=== PATIENT | female | born 1970 | race Caucasian/White ===

== ENCOUNTER 2016-06-19 18:56 | Inpatient (IN) | payer MEDICAID ==
[~2016-06-19] VITALS: Ht 172.7 cm; Wt 132.5 kg
[2016-06-19] VITALS (10 sets, daily range): BP systolic 84–129; RESP 13–20; TEMP 98–99.8; Ht 172.7 cm; Wt 132.5 kg
[~2016-06-19 18:56] MED LIST: GLYCOPYRROLATE 0.2 MG/ML VIAL IV ONE; LIDOCAINE 2% JELLY 30 ML TOPICAL ONE; LIDOCAINE 2% SYR 5 ML IV ONE; METOCLOPRAMIDE 10 MG/2 ML VIAL IV PUSH ONE; MIDAZOLAM 2 MG/2 ML INJ IV ONE; PROPOFOL 50ML PER ML IV ONE
[2016-06-19] MEDS ORDERED: KETOROLAC 30 MG/ML VIAL ONE (19:27)
[2016-06-19] MEDS ORDERED: MORPHINE 4 MG/ML SYR ONE (19:28)
[2016-06-19] MEDS ORDERED: SODIUM CHLORIDE 0.9% 1,000 ML ONE ×2 (19:28→20:47)
[2016-06-19] MEDS ORDERED: ONDANSETRON 4 MG VIAL ONE (19:28)
[2016-06-19] MEDS ORDERED: ACETAMINOPHEN 325 MG TAB ONE (19:33)
[2016-06-19] MEDS ORDERED: DILAUDID 1 MG/ML AMP ONE ×2 (19:33→21:47)
[2016-06-19] MEDS ORDERED: SODIUM CHLORIDE 0.9% 100 ML IV ONE (19:59)
[2016-06-19] MEDS ORDERED: CEFTRIAXONE 1 GM VIAL ONE (19:59)
[2016-06-19] MEDS ORDERED: CEFTRIAXONE 1 GM in SODIUM CHLORIDE 0.9% 50 ML IV ONE (20:40)
[2016-06-19] MEDS ORDERED: ONDANSETRON 4 MG VIAL IV PUSH PRN (21:15)
[2016-06-19] MEDS ORDERED: DILAUDID 1 MG/ML AMP IV PRN (21:30)
[2016-06-19] MEDS ORDERED: MEPERIDINE 25 MG/ML IV PRN (21:30)
[2016-06-19] MEDS ORDERED: MORPHINE 2 MG/ML SYR IV PRN (21:30)
[2016-06-19] MEDS ORDERED: OXYCODONE 5 MG TAB PO PRN (21:30)
[2016-06-19] MEDS ORDERED: MORPHINE 4 MG/ML SYR IV PRN (21:30)
[2016-06-19] MEDS ORDERED: ONDANSETRON 4 MG VIAL IV PRN (21:30)
[2016-06-19] MEDS ORDERED: LACT RINGERS 1,000 ML IV SCH (21:35)
[2016-06-19] MEDS ORDERED: SODIUM CHLORIDE 0.9% 1,000 ML IV SCH (21:35)
[2016-06-20] VITALS (10 sets, daily range): BP systolic 106–119; RESP 15–20; TEMP 98.3–101.7
[2016-06-20] MEDS ORDERED: SODIUM CHLORIDE 0.9% 1,000 ML IV ONE (00:10)
[2016-06-20] MEDS: lamoTRIgine 25 MG TAB PO SCH ×3 (00:55→21:23)
[2016-06-20] MEDS: lamoTRIgine 100 MG TAB PO SCH ×3 (00:55→21:22)
[2016-06-20] MEDS: OXCARBAZEPINE 300 MG TAB PO SCH ×3 (00:56→21:22)
[2016-06-20] MEDS: MORPHINE 2 MG/ML SYR IV PRN ×2 (03:06→09:21)
[2016-06-20] MEDS: ACETAMINOPHEN 325 MG TAB PO PRN (06:43)
[2016-06-20] MEDS ORDERED: SODIUM CHLORIDE 0.9% 1,000 ML IV SCH (07:00)
[2016-06-20] MEDS: CEFTRIAXONE 2 GM in SODIUM CHLORIDE 0.9% 50 ML IV SCH (08:10)
[2016-06-20] MEDS: DOCUSATE SOD 100 MG CAP PO SCH ×2 (08:10→21:23)
[2016-06-20] MEDS: clonazePAM 0.5 MG TAB PO SCH ×2 (08:13→21:23)
[2016-06-20] MEDS: OXYCODONE 5 MG TAB PO PRN ×2 (14:35→21:24)
[2016-06-20] MEDS ORDERED: MISSING DOSE XX ONE (16:35)
[2016-06-20] MEDS: Ibuprofen 600 MG TAB PO PRN (16:58)
[2016-06-20] MEDS ORDERED: D5-1/2-NS W/KCL 20MEQ/L 1,000 ML IV SCH (17:00)
[2016-06-21 00:23] VITALS: BP_SYST 112; RESP 18; TEMP 98.5
[2016-06-21] MEDS: Ibuprofen 600 MG TAB PO PRN (01:38)
[2016-06-21 03:44] VITALS: BP_SYST 124; RESP 18; TEMP 98.9
[2016-06-21] MEDS ORDERED: KCL CR 20 MEQ TAB PO ONE (07:00)
[2016-06-21] MEDS ORDERED: D5-1/2-NS W/KCL 20MEQ/L 1,000 ML IV SCH (07:00)
[2016-06-21 07:30] VITALS: BP_SYST 122; RESP 16; TEMP 98.1
[2016-06-21] MEDS: CEFTRIAXONE 2 GM in SODIUM CHLORIDE 0.9% 50 ML IV SCH (08:10)
[2016-06-21] MEDS: OXCARBAZEPINE 300 MG TAB PO SCH ×2 (08:11→20:28)
[2016-06-21] MEDS: lamoTRIgine 100 MG TAB PO SCH ×2 (08:11→20:31)
[2016-06-21] MEDS: DOCUSATE SOD 100 MG CAP PO SCH ×2 (08:11→20:31)
[2016-06-21] MEDS: clonazePAM 0.5 MG TAB PO SCH ×2 (08:11→20:31)
[2016-06-21] MEDS: lamoTRIgine 25 MG TAB PO SCH ×2 (08:11→20:30)
[2016-06-21 11:09] VITALS: BP_SYST 129; RESP 16; TEMP 97.9
[2016-06-21] MEDS: OXYCODONE 5 MG TAB PO PRN ×3 (12:38→22:03)
[2016-06-21 15:29] VITALS: BP_SYST 140; RESP 15; TEMP 100.4
[2016-06-21] MEDS: ACETAMINOPHEN 325 MG TAB PO PRN (16:32)
[2016-06-21 20:13] VITALS: BP_SYST 122; RESP 16; TEMP 99.1
[2016-06-21] MEDS: TRIMETH/SULFAMETH 160/800 TAB PO SCH (20:31)
[2016-06-22 00:07] VITALS: BP_SYST 111; RESP 20; TEMP 98.6
[2016-06-22] MEDS: Ibuprofen 600 MG TAB PO PRN (01:37)
[2016-06-22 05:23] VITALS: BP_SYST 106; RESP 20; TEMP 97.9
[2016-06-22] MEDS: OXYCODONE 5 MG TAB PO PRN (05:29)
[2016-06-22 07:46] VITALS: BP_SYST 108; RESP 16; TEMP 98.1
[2016-06-22 08:20] VITALS: BP_SYST 108; RESP 16; TEMP 98.1
[2016-06-22] MEDS: lamoTRIgine 25 MG TAB PO SCH (08:36)
[2016-06-22] MEDS: lamoTRIgine 100 MG TAB PO SCH (08:36)
[2016-06-22] MEDS: DOCUSATE SOD 100 MG CAP PO SCH (08:36)
[2016-06-22] MEDS: clonazePAM 0.5 MG TAB PO SCH (08:37)
[2016-06-22] MEDS: OXCARBAZEPINE 300 MG TAB PO SCH (08:37)
[2016-06-22] MEDS: TRIMETH/SULFAMETH 160/800 TAB PO SCH (08:37)
== END 2016-06-22 13:58 | disposition home or self-care (01) | DRG 872 ==
LOC: ER 18:56 → EMR 21:15 → 5THW 22:24 → OBSVTOIN 06-21 15:57 → ENPENDDIS 06-21 15:57
PROVIDERS: ADMIT Urology; ATTEND Urology
PROC: 0T778DZ Dilation of Left Ureter with Intraluminal Device, Via Natural or Artificial Opening Endoscopic (ICD-10-PCS; principal; 2016-06-19 21:12)
CPT/HCPCS: 36415; 74000; 74176; 76000; 80048; 80053; 81001; 83605; 83690; 84132; 85025; 87040; 87088; 87804; 87880; 96361; 96365; 96375

== ENCOUNTER 2016-07-15 13:51 | Inpatient (IN) | payer MEDICAID ==
[~2016-07-15] VITALS: Ht 172.7 cm; Wt 131.6 kg
[2016-07-15] MEDS ORDERED: ACETAMINOPHEN 325 MG TAB ONE (16:24)
[2016-07-15] MEDS ORDERED: ONDANSETRON 4 MG VIAL ONE (17:32)
[2016-07-15] MEDS ORDERED: SODIUM CHLORIDE 0.9% 1,000 ML ONE (17:32)
[2016-07-15] MEDS ORDERED: Ibuprofen 400 MG TAB ONE (17:32)
[2016-07-15] MEDS ORDERED: MORPHINE 4 MG/ML SYR ONE (17:58)
[2016-07-15] MEDS ORDERED: AZITHROMYCIN 500 MG VIAL IV ONE (18:49)
[2016-07-15] MEDS ORDERED: SODIUM CHLORIDE 0.9% 100 ML IV ONE (18:50)
[2016-07-15] MEDS ORDERED: CEFTRIAXONE 1 GM VIAL ONE (18:50)
[2016-07-15] MEDS ORDERED: SODIUM CHLORIDE 0.9% 250 ML IV ONE (18:50)
[2016-07-15] MEDS ORDERED: DILAUDID 1 MG/ML AMP ONE (20:32)
[2016-07-15 22:02] VITALS: BP_SYST 131; RESP 16; TEMP 99.6
[2016-07-15 22:03] VITALS: Ht 172.7 cm; Wt 131.6 kg
[2016-07-15] MEDS ORDERED: ONDANSETRON 4 MG VIAL IV PUSH PRN (22:25)
[2016-07-15 23:02] VITALS: TEMP 100.5
[2016-07-15] MEDS: ACETAMINOPHEN 325 MG TAB PO PRN (23:02)
[2016-07-15] MEDS: MORPHINE 2 MG/ML SYR IV PRN (23:07)
[2016-07-15 23:12] VITALS: BP_SYST 134; RESP 16; TEMP 99.9
[2016-07-16] VITALS (9 sets, daily range): BP systolic 117–142; RESP 16–18; TEMP 99.3–102
[2016-07-16] MEDS: SODIUM CHLORIDE 0.9% 1,000 ML IV SCH ×2 (00:15→08:18)
[2016-07-16] MEDS: OXCARBAZEPINE 300 MG TAB PO SCH ×3 (00:22→21:20)
[2016-07-16] MEDS: clonazePAM 0.5 MG TAB PO SCH ×3 (00:22→21:20)
[2016-07-16] MEDS: lamoTRIgine 25 MG TAB PO SCH ×3 (00:22→21:20)
[2016-07-16] MEDS: MORPHINE 2 MG/ML SYR IV PRN ×2 (03:03→21:24)
[2016-07-16] MEDS: ACETAMINOPHEN 325 MG TAB PO PRN ×3 (03:03→15:50)
[2016-07-16] MEDS: LEVOFLOXACIN 500 MG/100 ML 100 ML IV SCH (08:18)
[2016-07-16] MEDS: CEFTRIAXONE 1 GM in SODIUM CHLORIDE 0.9% 50 ML IV SCH (10:02)
[2016-07-16] MEDS ORDERED: KCL CR 20 MEQ TAB PO ONE (13:20)
[2016-07-16] MEDS: D5-1/2-NS W/KCL 20MEQ/L 1,000 ML IV SCH ×2 (14:08→22:11)
[2016-07-17] VITALS (7 sets, daily range): BP systolic 120–132; RESP 16–18; TEMP 98.1–98.7
[2016-07-17] MEDS ORDERED: KCL CR 20 MEQ TAB PO ONE (06:55)
[2016-07-17] MEDS: clonazePAM 0.5 MG TAB PO SCH ×2 (08:38→20:13)
[2016-07-17] MEDS: OXCARBAZEPINE 300 MG TAB PO SCH ×2 (08:38→20:13)
[2016-07-17] MEDS: CEFTRIAXONE 1 GM in SODIUM CHLORIDE 0.9% 50 ML IV SCH (08:38)
[2016-07-17] MEDS: lamoTRIgine 25 MG TAB PO SCH ×2 (08:38→20:13)
[2016-07-17] MEDS: D5-1/2-NS W/KCL 20MEQ/L 1,000 ML IV SCH ×2 (08:41→20:15)
[2016-07-17] MEDS: LEVOFLOXACIN 500 MG/100 ML 100 ML IV SCH (09:40)
[2016-07-17] MEDS: MORPHINE 2 MG/ML SYR IV PRN (20:14)
[2016-07-18 03:19] VITALS: BP_SYST 127; RESP 16; TEMP 98.1
[2016-07-18 07:14] VITALS: BP_SYST 143; RESP 16; TEMP 98.3
[2016-07-18] MEDS ORDERED: D5-1/2-NS W/KCL 20MEQ/L 1,000 ML IV SCH (07:15)
[2016-07-18] MEDS: LEVOFLOXACIN 500 MG/100 ML 100 ML IV SCH (07:38)
[2016-07-18] MEDS: clonazePAM 0.5 MG TAB PO SCH (07:38)
[2016-07-18] MEDS: OXCARBAZEPINE 300 MG TAB PO SCH (07:38)
[2016-07-18] MEDS: lamoTRIgine 25 MG TAB PO SCH (07:38)
[2016-07-18 07:56] VITALS: BP_SYST 143; RESP 16; TEMP 98.3
== END 2016-07-18 09:07 | disposition home or self-care (01) | DRG 872 ==
LOC: ENRESERVTM → ENRESERVDT → ER 13:51 → EMR 20:33 → 5THE 21:54 → ENPENDDIS 07-17 15:09 → OBSVTOIN 07-17 15:09
PROVIDERS: ADMIT Urology; ATTEND Urology
DX: A41.9 Sepsis, unspecified organism (principal); N13.30 Unspecified hydronephrosis; R56.9 Unspecified convulsions; E87.6 Hypokalemia; I10 Essential (primary) hypertension; Z87.442 Personal history of urinary calculi
CPT/HCPCS: 36415; 71020; 74176; 80048; 80053; 81001; 83605; 83690; 85025; 87040; 87088; 94799; 96361; 96365; 96367; 96375